=== PATIENT | male | born 1950 | race African-American/Black ===

== ENCOUNTER 2017-10-02 10:40 | Outpatient (CLI) | payer MEDICARE ==
[2017-10-02 11:08] LABS: Hematocrit 34.9 % (35.5-45.6); Hemoglobin 11.6 gm/dl (11.8-15.2); Mean Corpuscular HGB Conc 33 % (32-34); Mean Corpuscular Hemoglobin 33 pg (28-32); Mean Corpuscular Volume 101 fl (84-94); Platelet Count 116 K/mm3 (140-440); Red Blood Count 3.48 M/mm3 (3.65-5.03); Red Cell Distribution Width 13.8 % (13.2-15.2)
[2017-10-02 11:29] LABS: Alanine Aminotransferase 51 units/L (7-56); Albumin 4.2 g/dL (3.9-5); BUN/Creatinine Ratio 19; Blood Urea Nitrogen 15 mg/dL (9-20); Calcium 9.5 mg/dL (8.4-10.2); Hemolysis Index 13
[2017-10-02 11:31] LABS: Erythrocyte Sedimentation Rate 48 mm/Hr (0-20)
== END 2017-10-02 10:41 | disposition home or self-care (01) ==
LOC: LAB 10:40
PROVIDERS: ATTEND Specialist
DX: M50.80 Other cervical disc disorders, unspecified cervical region (principal)
CPT/HCPCS: 36415; 80053; 85027; 85652